=== PATIENT | male | born 1960 | race Caucasian/White ===

== ENCOUNTER 2022-10-03 08:55 | Emergency (ER) | payer BC, MEDICAID ==
[~2022-10-03] VITALS: Ht 193 cm; Wt 107.5 kg
[~2022-10-03 08:55] MED LIST: TRAZ100T3 PO
[2022-10-03 10:15] VITALS: BP 143/84
[2022-10-03] MEDS ORDERED: cefTRIAXone SOD 1,000 MG VL IM ONE (10:15)
[2022-10-03] MEDS ORDERED: LIDO2SOL23 MT (10:16)
[2022-10-03] MEDS ORDERED: AMOX-277 PO (10:16)
== END 2022-10-03 10:30 | disposition home or self-care (01) ==
LOC: ER 08:55
DX: J03.90 Acute tonsillitis, unspecified (principal); H66.92 Otitis media, unspecified, left ear; Z79.2 Long term (current) use of antibiotics; Z79.899 Other long term (current) drug therapy
CPT/HCPCS: 96372; 99283; J0696